=== PATIENT | male | born 1995 | race Caucasian/White ===

== ENCOUNTER 2021-02-26 19:15 | Emergency (ER) | payer OTHER | END 2021-02-26 21:16 | disposition left against medical advice (07) | LOC: ER1 19:15 | DX: M79.662 Pain in left lower leg (principal); X50.9XXA Other and unspecified overexertion or strenuous movements or postures, initial encounter | CPT/HCPCS: 73590; 99283 ==

== ENCOUNTER → 2021-03-16 | Outpatient (CLI) | payer OTHER | LOC: KOH-I 14:58 | DX: M25.562 Pain in left knee (principal); M25.561 Pain in right knee; M54.50 Low back pain, unspecified; M79.642 Pain in left hand; M79.641 Pain in right hand | CPT/HCPCS: 72100; 73130; 73562 ==

== ENCOUNTER 2021-04-13 18:32 | Emergency (ER) | payer OTHER, MEDICAID ==
[2021-04-13] MEDS ORDERED: ZOFRAN 4 MG TAB4 MG PO (21:27)
== END 2021-04-13 21:50 | disposition home or self-care (01) ==
LOC: ER1 18:32
DX: U07.1 COVID-19 (principal)
CPT/HCPCS: 0240U; 87081; 87880; 93005; 99283

== ENCOUNTER 2021-06-30 14:25 | Emergency (ER) | payer OTHER ==
[~2021-06-30 14:25] MED LIST: ZOFRAN 4 MG TAB4 MG PO
[2021-06-30 17:19] LABS: HEMOGLOBIN 14.7 gm/dl (14.0-17.5); RED BLOOD COUNT 4.94 M/UL (4.20-5.50)
[2021-06-30 18:35] LABS: BUN/CREATININE RATIO 10 (0-10)
[2021-06-30] MEDS ORDERED: IBUPROFEN800 MG PO (20:27)
== END 2021-06-30 20:50 | disposition home or self-care (01) ==
LOC: ER1 14:25
PROVIDERS: Nurse Practitioner
DX: J03.90 Acute tonsillitis, unspecified (principal); Z20.822 Contact with and (suspected) exposure to COVID-19; F17.210 Nicotine dependence, cigarettes, uncomplicated
CPT/HCPCS: 0240U; 70491; 80053; 81001; 85025; 86403; 87040; 87081; 87880; 96374; 96375; 99283; J1100; J2543; Q9967

== ENCOUNTER 2021-08-06 10:48 | Observation (INO) | payer OTHER ==
[~2021-08-06] VITALS: Ht 182.9 cm; Wt 103.9 kg
[~2021-08-06 10:48] MED LIST changes: +IBUPROFEN800 MG PO
[2021-08-06 11:41] LABS: RED BLOOD COUNT 5.44 M/UL (4.20-5.50); WHITE BLOOD COUNT 5.5 K/UL (4.5-11.0)
[2021-08-06 12:15] LABS: BUN/CREATININE RATIO 13 (0-10)
[2021-08-07 07:00] LABS: HEMOGLOBIN 15.1 gm/dl (14.0-17.5); RED BLOOD COUNT 5.13 M/UL (4.20-5.50); WHITE BLOOD COUNT 4.9 K/UL (4.5-11.0)
[2021-08-07 07:45] LABS: BUN/CREATININE RATIO 13 (0-10)
[2021-08-08 06:38] LABS: HEMOGLOBIN 16.1 gm/dl (14.0-17.5); RED BLOOD COUNT 5.54 M/UL (4.20-5.50); WHITE BLOOD COUNT 5.4 K/UL (4.5-11.0)
[2021-08-08 07:01] LABS: BUN/CREATININE RATIO 13 (0-10)
[2021-08-08] MEDS ORDERED: PROTONIX 40 MG40 M1 PO (16:01)
[2021-08-08] MEDS ORDERED: ASPIRIN EC81 MG PO (16:07)
[2021-08-08] MEDS ORDERED: NITROSTAT0.4 MG SL ×2 (16:18→16:51)
== END 2021-08-08 17:03 | disposition home or self-care (01) ==
LOC: ER1 10:48 → CDU 12:45 → MED SURG 4 12:45
PROVIDERS: Internal Medicine; Nurse Practitioner; Physician Assistant; ADMIT Internal Medicine
DX: R07.89 Other chest pain (principal); M62.82 Rhabdomyolysis; E83.39 Other disorders of phosphorus metabolism; K21.9 Gastro-esophageal reflux disease without esophagitis; Z20.822 Contact with and (suspected) exposure to COVID-19; Z72.89 Other problems related to lifestyle; Z82.49 Family history of ischemic heart disease and other diseases of the circulatory system
CPT/HCPCS: ECHO; 36415; 71045; 80048; 80053; 80307; 81001; 82436; 82550; 82553; 82570; 83735; 84100; 84133; 84156; 84300; 84402; 84403; 84439; 84443; 84484; 85025; 85027; 85379; 93005; 93306; 96374; 99285; G0378; J1650; J1885; J7030; U0002

== ENCOUNTER 2021-08-15 00:27 | Emergency (ER) | payer OTHER ==
[~2021-08-15 00:27] MED LIST changes: +ASPIRIN EC81 MG PO; +NITROSTAT0.4 MG SL; +PROTONIX 40 MG40 M1 PO
[2021-08-15 01:21] LABS: HEMOGLOBIN 16.5 gm/dl (14.0-17.5); RED BLOOD COUNT 5.56 M/UL (4.20-5.50); WHITE BLOOD COUNT 8.2 K/UL (4.5-11.0)
[2021-08-15 01:55] LABS: BUN/CREATININE RATIO 15 (0-10)
[2021-08-15] MEDS ORDERED: [UNRECOGNIZED DRUG - REMARK] (02:36)
== END 2021-08-15 03:15 | disposition home or self-care (01) ==
LOC: ER1 00:27
PROVIDERS: Family Medicine
DX: M62.82 Rhabdomyolysis (principal); F17.290 Nicotine dependence, other tobacco product, uncomplicated
CPT/HCPCS: 71046; 80053; 82550; 82553; 84484; 85025; 85379; 85652; 86140; 93005; 99285